=== PATIENT | female | born 1975 | race Caucasian/White ===

== ENCOUNTER → 2020-03-22 10:46 | Outpatient (CLI) | payer MEDICARE, MEDICAID, SELFPAY | PROVIDERS: PCP Obstetrics & Gynecology Gynecology; Visit Provider Obstetrics & Gynecology Gynecology | DX: Z20.822 Contact with and (suspected) exposure to COVID-19 (principal); Z01.818 Encounter for other preprocedural examination | CPT/HCPCS: U0003 ==

== ENCOUNTER → 2020-04-18 10:37 | Outpatient (CLI) | payer MEDICARE, MEDICAID, SELFPAY ==
[2020-04-19 16:01] LABS: C difficile Toxins AB, EIA Negative (Negative)
== END ==
PROVIDERS: Visit Provider Internal Medicine Hematology & Oncology
DX: R19.7 Diarrhea, unspecified (principal)
CPT/HCPCS: 87324

== ENCOUNTER 2021-06-24 19:52 | Inpatient (IN) | payer MEDICARE, MEDICAID, SELFPAY ==
[2021-06-24] VITALS (9 sets, daily range): BP systolic 95–109; BP diastolic 57–65; PULSE 44–67; RESP 18; TEMP 34.3–34.7; O2SAT 90–100; BMI 26.7
--- NOTE | 2021-06-24 20:06 | ECG_ITS ---
APPROVED REPORT Exam: Resting ECG HR:40 bpm ECG Measurements Heart Rate 40 AXES WV 167 P 46 QRSd 90 QRS 45 QT 579 T 45 QTc 512 Conclusion SINUS BRADYCARDIA PROLONGED QT INTERVAL CRITICAL TEST RESULT UNCONFIRMED REPORT Electronically signed by : Ari Saucedo MD 06/25/2021 17:37:38
--- NOTE | 2021-06-24 20:06 | XR_ITS ---
PROCEDURE INFORMATION: Exam: XR Chest Exam date and time: 06/24/2021 8:37 PM Age: 45 years old Clinical indication: Cough; Prior surgery; Surgery type: Port TECHNIQUE: Imaging protocol: XR of the chest. Views: 1 view. COMPARISON: No relevant prior studies available. FINDINGS: Lungs: No acute airspace consolidation. No appreciable pulmonary edema. Calcified pulmonary granuloma in the mid right lung, compatible with chronic sequelae of prior granulomatous disease. Pleural spaces: No pleural effusion. No pneumothorax. Heart/Mediastinum: Cardiomediastinal silouhette is within normal limits. Vasculature: Right IJ approach central venous port catheter in place with tip in the right atrium. Bones/joints: No acute osseous abnormality. Soft tissues: Unremarkable. IMPRESSION: No evidence of acute cardiopulmonary disease.
--- NOTE | 2021-06-24 20:14 | HMH.EDGENADL ---
ED Disposition Clinical Impression: Hypoglycemia, Hypokalemia Diabetes mellitus Qualifiers: Diabetes mellitus type: type 2 Diabetes mellitus intermediate insulin use: unspecified intermediate insulin use status Diabetes mellitus complication status: with other specified complication Qualified Code(s): E11.69 - Type 2 diabetes mellitus with other specified complication Hypothermia Qualifiers: Encounter type: initial encounter Qualified Code(s): T68.XXXA - Hypothermia, initial encounter Pancreatic cancer Qualifiers: Pancreatic malignancy location: unspecified Qualified Code(s): C25.9 - Malignant neoplasm of pancreas, unspecified Disposition: Admitted As Inpatient Condition on Discharge: Serious - Critical Care Critical Care Time: No Attestation: On 06/24/21, the high probability of a clinically significant, sudden or life threatening deterioration of the following system(s) required my full and direct attention, intervention and personal management. The time I documented below is in addition to time spent performing reported procedures but includes the following listed in this critical care notation. Medical Decision Making - Medical Records Medical records reviewed: Yes: I reviewed the patient's medical records. - Pérez Inquiry Pt receiving controlled substance: No Vital Signs: 06/24/21 19:51 06/24/21 20:06 06/24/21 20:30 Temperature 94.5 F L Temperature Source Rectal Pulse Rate 44 L 55 L Pulse Rate [Left Radial] 52 L Respiratory Rate 18 Blood Pressure Blood Pressure [Left Arm] 98/65 L Blood Pressure Mean Blood Pressure Mean [Left Arm] 76 02 Sat by Pulse Oximetry 100 98 98 Oxygen Delivery Method Room Air 06/24/21 21:00 06/24/21 21:30 06/24/21 22:00 Temperature Temperature Source Pulse Rate 51 L 67 65 Pulse Rate [Left Radial] Respiratory Rate Blood Pressure 95/61 L 97/57 L Blood Pressure [Left Arm] Blood Pressure Mean Blood Pressure Mean [Left Arm] 02 Sat by Pulse Oximetry 91 L 90 L 93 L Oxygen Delivery Method 06/24/21 22:30 06/24/21 23:00 06/24/21 23:30 Temperature 93.8 F L 93.8 F L Temperature Source Pulse Rate 62 57 L 62 Pulse Rate [Left Radial] Respiratory Rate Blood Pressure 109/59 L 108/64 L 105/60 L Blood Pressure [Left Arm] Blood Pressure Mean 75 78 85 Blood Pressure Mean [Left Arm] 02 Sat by Pulse Oximetry 98 97 Oxygen Delivery Method 06/25/21 00:00 06/25/21 00:01 06/25/21 00:30 Temperature 94.6 F L 94.6 F L Temperature Source Pulse Rate 73 70 73 Pulse Rate [Left Radial] Respiratory Rate 16 16 Blood Pressure 104/70 L 100/62 L 99/75 L Blood Pressure [Left Arm] Blood Pressure Mean 83 79 Blood Pressure Mean [Left Arm] 02 Sat by Pulse Oximetry 96 99 92 L Oxygen Delivery Method - Lab Data Lab results reviewed: Yes: I reviewed the patient's lab results. Lab Results 06/24/21 20:13: Urine Color Yellow, Urine Appearance Clear, Urine pH 7.5, Ur Specific [place] 1.010, Urine Protein Trace, Urine Glucose (UA) Negative, Urine Ketones Negative, Urine Blood Negative, Urine Nitrate Negative, Urine Bilirubin Negative, Urine Urobilinogen 0.2, Ur Leukocyte Esterase Negative, Urine RBC None, Urine WBC Occasional, Ur Squamous Epith Cells Occasional, Urine Bacteria None 06/24/21 20:24: WBC 13.3 H, RBC 4.63, Hgb 12.3, Hct 38.2, MCV 82.5, MCH 26.5 L, MCHC 32.2, RDW 17.0, Plt Count 540 H, MPV 7.5, Neut % (Auto) 89.7 H, Lymph % (Auto) 5.4 L, [place] % (Auto) 3.8, Eos % (Auto) 0.8, Baso % (Auto) 0.3, Neut # (Auto) 12.0 H, Lymph # (Auto) 0.7, [place] # (Auto) 0.5, Eos # (Auto) 0.1, Baso # (Auto) 0.0, Total Counted 100, Neutrophils % (Manual) 89 H, Lymphocytes % (Manual) 9 L, Monocytes % (Manual) 2, Platelet Estimate Normal, RBC Morphology Normal 06/24/21 20:24: Sodium 134 L, Potassium 2.1 L*, Chloride 93 L, Carbon Dioxide 40 H, Anion Gap 3.1 L, BUN 9, Creatinine 0.80, Estimated Creat Clear 99, Estimated GFR 78, Est GFR (Afric
[2021-06-24 20:19] LABS: Microscopic, Urine URINE MICROSCOPIC (MICROSCOPIC)
[2021-06-24 20:22] LABS: Appearance,Urine CLEAR (Clear); Bilirubin,Urine Negative (Negative); Blood, Urine Negative (Negative); Color,Urine YELLOW (Yellow); Glucose,Urine (UA) Negative (Negative); Ketones,Urine Negative (Negative); Leukocyte Esterase,Urine Negative (Negative); Nitrate,Urine Negative (Negative); PH,Urine 7.5 (5.0-8.5); Protein,Urine TRACE (Negative); Urobilinogen,Urine 0.2 EU/dl (0.2)
[2021-06-24 20:33] LABS: Squamous Epithelial Cell,Urine Occasional #/hpf (0-5); WBC,Urine Occasional #/hpf (0-3)
[2021-06-24 20:42] LABS: Basophils % 0.3 % (0.1-2.0); Eosinophils # 0.1 K/mm3 (0.0-0.4); Eosinophils % 0.8 % (0.1-12.0); Hematocrit 38.2 % (37.0-47.0); Hemoglobin 12.3 g/dL (12.2-16.2); Lymphocytes # 0.7 K/mm3 (0.7-4.5); Lymphocytes % 5.4 % (10-50); Mean Corpuscular HGB Conc 32.2 g/dL (31.8-35.4); Mean Corpuscular Hemoglobin 26.5 pg (27.0-31.2); Mean Corpuscular Volume 82.5 fl (81-99); Mean Platelet Volume 7.5 fl (7.4-10.4); Monocytes # 0.5 K/mm3 (0.1-1.0); Monocytes % 3.8 % (1.7-9.3); Neutrophils % 89.7 % (37.0-80.0); Platelet Count 540 K/mm3 (142-424); Red Blood Count 4.63 M/mm3 (4.20-5.40); White Blood Count 13.3 K/mm3 (4.8-10.8)
[2021-06-24 20:43] LABS: MANUAL DIFFERENTIAL MANUAL DIFFERENTIAL (MANUAL DIFF)
[2021-06-24 20:47] LABS: Creatine Kinase 84 U/L (30-135); Lactic Acid 0.9 mmol/L (0.7-2.1)
[2021-06-24 20:48] LABS: Alanine Aminotransferase 29 U/L (12-78); Albumin Level 2.5 g/dl (3.5-5.0); Albumin/Globulin Ratio 0.8 (1.1-1.8); Alkaline Phosphatase 687 U/L (38-126); Aspartate Amino Transferase 56 U/L (14-36); Bilirubin,Total 0.4 mg/dl (0.2-1.3); Blood Urea Nitrogen 9 mg/dl (7-17); Calcium 7.8 mg/dl (8.4-10.2); Chloride 93 mmol/L (98-107); Creatinine Clearance Estimated 99 mL/min (50-200); Estimated Glomerular Filt Rate 78 ml/min (>60); GFR (African American) 94 ML/MIN (>60); Glucose 117 mg/dl (74-100); Sodium 134 mmol/L (136-145); Total Protein,Serum 5.5 g/dl (6.3-8.2)
[2021-06-24 20:53] LABS: C-Reactive Protein 39.3 mg/L (0-4)
[2021-06-24 20:54] LABS: Anion Gap 3.1 mEq/L (5-15); Carbon Dioxide 40 mmol/L (22.0-30.0)
[2021-06-24 21:03] LABS: Troponin I < 0.01 ng/ml (0.00-0.034)
[2021-06-24 21:04] LABS: Procalcitonin 0.079 ng/mL (0.0-2.0)
[2021-06-24 21:08] LABS: Potassium 2.1 mmoL/L (3.5-5.1)
[2021-06-24 21:12] LABS: POC Glucose,Bedside 136 (70-110)
[2021-06-24 21:15] LABS: Erythrocyte Sedimentation Rate 31 mm/hr (0-20)
[2021-06-24 21:48] LABS: Lymphocytes % 9 % (10-50); Monocytes % 2 % (2-9); Neutrophils % 89 % (42-76); Platelet Estimate Normal; RBC Morphology Normal; Total Cells Counted 100
--- NOTE | 2021-06-24 23:10 | PC.NURSE ---
Pt resting. Visitor at bedside.
[2021-06-24 23:25] LABS: Coronavirus 19, PCR Not Detected (NotDetected); Influenza A, PCR Not Detected (NotDetected); Influenza B, PCR Not Detected (NotDetected)
[2021-06-24 23:55] LABS: Troponin I < 0.01 ng/ml (0.00-0.034)
[2021-06-25] VITALS (8 sets, daily range): BP systolic 91–104; BP diastolic 53–75; PULSE 70–85; RESP 14–18; TEMP 34.8–37.1; O2SAT 92–99; BMI 27.5
[2021-06-25 00:26] LABS: POC Glucose,Bedside 61 (70-110)
--- NOTE | 2021-06-25 00:32 | PC.NURSE ---
Notified bunk house worker of pt admission and need for bed assignment
--- NOTE | 2021-06-25 01:04 | XR_ITS ---
PROCEDURE INFORMATION: Exam: XR Pelvis Exam date and time: 06/25/2021 1:14 AM Age: 45 years old Clinical indication: Injury or trauma; Fall; Blunt trauma (contusions or hematomas); Does not apply; Pelvic region; Prior surgery TECHNIQUE: Imaging protocol: XR pelvis. Views: 1 or 2 view. COMPARISON: No relevant prior studies available. FINDINGS: Tubes, catheters and devices: Post-operative changes of prior right femur fixation with intramedullary femoral angelique and cannulated cross-locking trochanteric nail. Hardware is intact. No perihardware fracture or lucency to suggest loosening. Sawyer catheter in place. Bones/joints: No acute fracture or malalignment. Pubic symphysis and bilateral sacroiliac joints are congruent. Soft tissues: Unremarkable. IMPRESSION: 1. No acute osseous abnormality in the pelvis. 2. Prior right proximal femur fixation with no evidence of hardware malfunction/failure.
[2021-06-25 03:00] LABS: POC Glucose,Bedside 89 (70-110)
--- NOTE | 2021-06-25 03:08 | PC.NURSE ---
patient up to floor via stretcher @ this time.
[2021-06-25 06:27] LABS: Basophils % 0.3 % (0.1-2.0); Eosinophils # 0.1 K/mm3 (0.0-0.4); Eosinophils % 1.6 % (0.1-12.0); Hematocrit 35.3 % (37.0-47.0); Hemoglobin 11.7 g/dL (12.2-16.2); Lymphocytes # 0.7 K/mm3 (0.7-4.5); Lymphocytes % 8.9 % (10-50); Mean Corpuscular HGB Conc 33.1 g/dL (31.8-35.4); Mean Corpuscular Volume 81.7 fl (81-99); Mean Platelet Volume 7.7 fl (7.4-10.4); Monocytes # 0.5 K/mm3 (0.1-1.0); Monocytes % 6.6 % (1.7-9.3); Neutrophils # 6.2 K/mm3 (1.8-7.8); Neutrophils % 82.5 % (37.0-80.0); Platelet Count 488 K/mm3 (142-424); Red Blood Count 4.32 M/mm3 (4.20-5.40); Red Cell Distribution Width 16.9 % (11.5-17.5); White Blood Count 7.5 K/mm3 (4.8-10.8)
[2021-06-25 06:31] LABS: Blood Urea Nitrogen 8 mg/dl (7-17); Calcium 7.6 mg/dl (8.4-10.2); Chloride 95 mmol/L (98-107); Creatinine Clearance Estimated 117 mL/min (50-200); Estimated Glomerular Filt Rate 90 ml/min (>60); GFR (African American) 109 ML/MIN (>60); Glucose 106 mg/dl (74-100); Magnesium 1.6 mg/dl (1.6-2.3); Sodium 136 mmol/L (136-145)
[2021-06-25 06:38] LABS: Anion Gap 4.9 mEq/L (5-15); Carbon Dioxide 38 mmol/L (22.0-30.0)
[2021-06-25 06:41] LABS: Potassium 1.9 mmoL/L (3.5-5.1)
--- NOTE | 2021-06-25 06:47 | PC.NURSE ---
critical K+1.[address] Sanders. Instructed to give 20 mg PO now.
[2021-06-25 06:48] LABS: T4 (Thyroxine) 6.6 ug/dl (5.53-11.0)
--- NOTE | 2021-06-25 10:12 | HMH.PHAVTE ---
[facility] Pharmacy VTE Monitoring - Patient Demographics Admission date: 06/25/21 Report Date: 06/25/21 Time: 10:12 Allergies/Adverse Reactions: Patient Allergies Bacitracin Allergy (Intermediate, Uncoded 02/02/17 15:05) I-RASH Polymyxin B Allergy (Intermediate, Uncoded 02/02/17 15:05) I-RASH PCN (penicillin) Allergy (Unknown, Uncoded 02/02/17 15:05) Penicillin Allergy (Unknown, Uncoded 02/02/17 15:05) Penicillin V Allergy (Unknown, Uncoded 02/02/17 15:05) Height: 1.63 m Weight: 73.198 kg Patient Problems: Current Active Problems Diabetes mellitus (Acute) Hypoglycemia (Acute) Hypothermia (Acute) Pancreatic cancer (Acute) Hypokalemia (Acute) - VTE Risk Labs: VTE Related Lab Results Hgb 11.7 g/dL (12.2-16.2) L 06/25/21 05:24 Hct 35.3 % (37.0-47.0) L 06/25/21 05:24 Plt Count 488 K/mm3 (142-424) H 06/25/21 05:24 BUN 8 mg/dl (7-17) 06/25/21 05:24 Creatinine 0.70 mg/dl (0.52-1.04) 06/25/21 05:24 Estimated Creat Clear 117 mL/min (50-200) 06/25/21 05:24 Was VTE Risk Assessment Performed: Yes VTE Score: 3 VTE Risk Level: Low Risk Clinical Trial Participant: No - Prophylaxis VTE Prophylaxis Ordered?: Yes Types of VTE Prophylaxis: TEDS Knee High Location of Applied Device: Bilateral Lower Extremeties
[2021-06-25 11:46] LABS: POC Glucose,Bedside 127 (70-110)
--- NOTE | 2021-06-25 12:09 | PC.NURSE ---
Lab came to draw 1200 bmp but patient refused at this time and wanted to wait a half an hour
[2021-06-25 12:35] LABS: POC Glucose,Bedside 122 (70-110)
[2021-06-25 12:35] LABS: POC Glucose,Bedside 125 (70-110)
[2021-06-25 13:50] LABS: Anion Gap 1.9 mEq/L (5-15); Blood Urea Nitrogen 6 mg/dl (7-17); Calcium 7.9 mg/dl (8.4-10.2); Carbon Dioxide 38 mmol/L (22.0-30.0); Chloride 98 mmol/L (98-107); Creatinine Clearance Estimated 117 mL/min (50-200); Estimated Glomerular Filt Rate 90 ml/min (>60); GFR (African American) 109 ML/MIN (>60); Glucose 129 mg/dl (74-100); Sodium 135 mmol/L (136-145)
[2021-06-25 13:51] LABS: Potassium 2.9 mmoL/L (3.5-5.1)
--- NOTE | 2021-06-25 13:55 | PC.NURSE ---
Austin Beltran APRN notified of critical K+ of 2.9
--- NOTE | 2021-06-25 16:21 | HMH.HPDC ---
General - General Admission date:: 06/25/21 Discharge date: 06/25/21 *Admission Date: 06/25/21 *Chief complaint: hypothermia *History of present illness: 45 yr old female presented to ed via ambulance. Pt returned home and found pt on the floor at 1900, Per ems record glucose was 22. ems admiinistered Glucagon and glucose up to 64 when arrived at ed. hx of diabetes and pancreatic cancer - no fever or trauma. Pt was also hypothermic when arrived to ed. Pt was admitted for monitoring and increase of body temp. today pt states she feels much better and wants to go home [facility] History I have reviewed the patient's past medical history: Yes Medical History: Reports:: Cancer, Diabetes Mellitus Type 2 Denies:: Diabetes Mellitus Type 1 *Have you ever received a pneumonia vaccine?: No *Have you received a flu vaccine this season?: No Other Medical History: Reports: Arthritis, Chemotherapy Other Surgeries: Yes: Tubal Ligation, Other (liver stent) - *Social History Last grade of school completed: Advanced degree Smoking Status: Current every day smoker Tobacco Type: cigarettes # Packs/Day (cigarettes): 1 Alcohol Intake: never Substance Use Type: marijuana Last Used Substance: just [employer] *Occupational Status:: disabled Housing: house Household Members: significant other *Travel in the last 8 weeks: None Family Hx:: Cancer, Diabetes, Hypertension Review of Systems - Review of Systems Review of systems:: pertinent systems reviewed and negative unless documented below - Constitutional Denies daytime sleepiness - Eyes Denies blurry vision - ENT Denies bleeding gums - *Cardiovascular Denies chest pain at rest - *Respiratory Denies chest congestion - *Gastrointestinal Denies bloating - *Genitourinary Denies abnormal vaginal bleeding - *Musculoskeletal Denies decreased muscle mass - Integumentary/Breasts Denies rash - *Neurologic Reports weakness, Denies abnormal movements, Denies localized weakness, Denies seizure-like activity - Psychiatric Denies anxiety - Endocrine Denies excessive sweating - Hematologic/Lymphatic Denies easy bruising - Allergic/Immunologic Denies itchy eyes Exam Vital signs and Labs for Last 24 Hours: Temp Pulse Resp BP Pulse Ox 98.7 F 84 16 91/57 L 98 06/25/21 15:09 06/25/21 15:09 06/25/21 15:06/25/21 15:06/25/21 15:09 Laboratory Results - last 24 hr 06/24/21 20:13: Urine Color Yellow, Urine Appearance Clear, Urine pH 7.5, Ur Specific [place] 1.010, Urine Protein Trace, Urine Glucose (UA) Negative, Urine Ketones Negative, Urine Blood Negative, Urine Nitrate Negative, Urine Bilirubin Negative, Urine Urobilinogen 0.2, Ur Leukocyte Esterase Negative, Urine RBC None, Urine WBC Occasional, Ur Squamous Epith Cells Occasional, Urine Bacteria None 06/24/21 20:24: WBC 13.3 H, RBC 4.63, Hgb 12.3, Hct 38.2, MCV 82.5, MCH 26.5 L, MCHC 32.2, RDW 17.0, Plt Count 540 H, MPV 7.5, Neut % (Auto) 89.7 H, Lymph % (Auto) 5.4 L, [place] % (Auto) 3.8, Eos % (Auto) 0.8, Baso % (Auto) 0.3, Neut # (Auto) 12.0 H, Lymph # (Auto) 0.7, [place] # (Auto) 0.5, Eos # (Auto) 0.1, Baso # (Auto) 0.0, Total Counted 100, Neutrophils % (Manual) 89 H, Lymphocytes % (Manual) 9 L, Monocytes % (Manual) 2, Platelet Estimate Normal, RBC Morphology Normal 06/24/21 20:24: Sodium 134 L, Potassium 2.1 L*, Chloride 93 L, Carbon Dioxide 40 H, Anion Gap 3.1 L, BUN 9, Creatinine 0.80, Estimated Creat Clear 99, Estimated GFR 78, Est GFR ( Amer) 94, Glucose 117 H, Calcium 7.8 L, Total Bilirubin 0.4, AST 56 H, ALT 29, Alkaline Phosphatase 687 H, C-Reactive Protein 39.3 H, Total Protein 5.5 L, Albumin 2.5 L, Globulin 3.0, Albumin/Globulin Ratio 0.8 L 06/24/21 20:24: ESR 31 H 06/24/21 20:24: Total Creatine Kinase 84, Troponin I < 0.01, Procalcitonin 0.079 06/24/21 20:24: Lactate 0.9 06/24/21 21:06: POC Glucose 136 H 06/24/21 23:20: Troponin I < 0.01 06/24/21 23:20: SARS-CoV-2 (PCR) Not detected, Influenza A Untype (
[2021-06-25 16:53] LABS: POC Glucose,Bedside 110 (70-110)
--- NOTE | 2021-06-26 14:05 | CARE MANAGER ---
Addendum entered by Laura Naranjo RN 06/26/21 14:31: Patient has appointment with PCP next . SUSANA Lincoln suggests patient stop taking Lantus until her appointment. Discussed with patient if blood sugar stays too low to reach out to her PCP to see what steps to take next. We also discussed if the blood sugar starts increasing she will need to consult MD as Lantus will need to be added back but perhaps not at the same amount she was on. Patient verbalized understanding. Original Note: Spoke with patient related to discharge from hospital. Patient states that her blood sugar was 39 earlier. She has eaten candy and drank juice, but it keeps going back down. Discussed with her the importance of eating something with protein to help sustain her blood sugar. That the sweets will get it up immediately but the protein will help in the long run. She verbalizes understanding. Patient also states she takes Lantus, Humalog, and Metformin. Patient states she has a regular doctor but a doctor at with a long last name handles her diabetic medications. I strongly encouraged patient to reach out to whomever she could get in touch with first and discuss her hypoglycemic episodes and what she should do regarding those medications. She assured me she would.
== END 2021-06-25 18:02 | disposition home or self-care (01) | DRG 638 ==
LOC: ER 20:07 → 2ND 06-25 00:42
PROVIDERS: Nurse Practitioner Family; Admitting Provider Emergency Medicine; Emergency Provider Emergency Medicine; Visit Provider Emergency Medicine
DX: E11.649 Type 2 diabetes mellitus with hypoglycemia without coma (principal); C25.9 Malignant neoplasm of pancreas, unspecified; R68.0 Hypothermia, not associated with low environmental temperature; E87.6 Hypokalemia; F17.210 Nicotine dependence, cigarettes, uncomplicated; Z20.822 Contact with and (suspected) exposure to COVID-19
CPT/HCPCS: 51702; 71045; 72170; 80048; 80053; 81001; 82550; 82962; 83605; 83735; 84145; 84436; 84443; 84484; 85007; 85025; 85651; 86140; 87040; 87086; 93005; 99285; C9803; J1642; J2405; U0003; U0005

== ENCOUNTER 2021-08-29 19:09 | Inpatient (IN) | payer MEDICARE, MEDICAID, SELFPAY ==
[2021-08-29] VITALS (10 sets, daily range): BP systolic 76–144; BP diastolic 55–94; PULSE 49–83; RESP 11–19; TEMP 33.8; O2SAT 92–98; BMI 28.1
--- NOTE | 2021-08-29 19:10 | HMH.EDAMS ---
ED Disposition Condition on Discharge: Fair - Critical Care Critical Care Time: No <Khanh Johnson - Last Filed: 08/29/21 19:50> Condition on Discharge: Serious Total Critical Care Time: 60 Vital system(s) involved:: Circulatory Failure, Metabolic Failure, Respiratory Failure <Ramo Sanders - Last Filed: 08/30/21 04:08> Clinical Impression: Insulin coma, Sinus bradycardia by electrocardiogram, SAH (subarachnoid hemorrhage), Hypokalemia Hypothermia Qualifiers: Encounter type: initial encounter Qualified Code(s): T68.XXXA - Hypothermia, initial encounter Diabetes mellitus Qualifiers: Diabetes mellitus type: type 2 Diabetes mellitus fci insulin use: unspecified fci insulin use status Diabetes mellitus complication status: with other specified complication Qualified Code(s): E11.69 - Type 2 diabetes mellitus with other specified complication Disposition: Admitted As Inpatient Attestation: On 08/29/21, the high probability of a clinically significant, sudden or life threatening deterioration of the following system(s) required my full and direct attention, intervention and personal management. The time I documented below is in addition to time spent performing reported procedures but includes the following listed in this critical care notation. Medical Decision Making - Pérez Inquiry Pt receiving controlled substance: No - ECG Data Tracing #1 I reviewed this ECG and interpreted as documented below: Normal Sinus Rhythm: Yes Arrhythmias present: sinus murphy - Reevaluation(s) Time: 19:46 <Khanh Johnson - Last Filed: 08/29/21 19:50> - Medical Records Medical records reviewed: Yes: I reviewed the patient's medical records. - Lab Data Lab results reviewed: Yes: I reviewed the patient's lab results. Result diagrams: 08/29/21 19:41 08/29/21 19:41 - Radiology Data #1 Image(s): Chest, Pelvis Image Reviewed: Yes I have reviewed radiologist's interpretation Preliminary Findings: Abnormal (see report ) - CT Data CT Scan: Head, C-Spine Time Received: 04:[address] Reviewed: Yes: I have viewed the radiologist's interpretation Preliminary Findings: Abnormal (see report x 2 ) <Ramo Sanders S - Last Filed: 08/30/21 04:08> Vital Signs: 08/29/21 19:10 08/29/21 20:31 08/29/21 21:00 Temperature 92.9 F L Temperature Source Rectal Pulse Rate 66 69 Pulse Rate [Left Radial] 49 L Respiratory Rate 12 16 15 Blood Pressure 95/69 L 88/62 L Blood Pressure [Right Arm] 144/94 H Blood Pressure Mean 67 Blood Pressure Mean [Right Arm] 110 Blood Pressure Source [Right Arm] Automatic Cuff Blood Pressure Position [Right Arm] Sitting 02 Sat by Pulse Oximetry 97 94 L 97 Oxygen Delivery Method Room Air Room Air 08/29/21 21:02 08/29/21 21:04 08/29/21 21:10 Temperature Temperature Source Pulse Rate 77 74 78 Pulse Rate [Left Radial] Respiratory Rate 13 11 L 16 Blood Pressure 80/57 L 76/55 L 86/61 L Blood Pressure [Right Arm] Blood Pressure Mean 61 59 67 Blood Pressure Mean [Right Arm] Blood Pressure Source [Right Arm] Blood Pressure Position [Right Arm] 02 Sat by Pulse Oximetry 98 97 97 Oxygen Delivery Method 08/29/21 22:00 08/29/21 22:30 08/29/21 23:00 Temperature Temperature Source Pulse Rate 75 51 L 83 Pulse Rate [Left Radial] Respiratory Rate 19 15 17 Blood Pressure 87/63 L 83/59 L 82/56 L Blood Pressure [Right Arm] Blood Pressure Mean Blood Pressure Mean [Right Arm] Blood Pressure Source [Right Arm] Blood Pressure Position [Right Arm] 02 Sat by Pulse Oximetry 96 96 95 Oxygen Delivery Method Room Air Room Air Room Air 08/29/21 23:30 08/30/21 00:26 08/30/21 00:30 Temperature 94 F L Temperature Source Rectal Pulse Rate 68 77 68 Pulse Rate [Left Radial] Respiratory Rate 15 13 14 Blood Pressure 80/55 L 82/47 L 82/54 L Blood Pressure [Right Arm] Blood Pressure Mean 57 60 Blood Pressure Mean [Rig
--- NOTE | 2021-08-29 19:15 | PC.NURSE ---
Rectal temp obtained and is 92.8. Pt moved to room 4 to be placed on bear-hugger. Wet clothes removed, gown placed, and warm blankets placed around head and over bear-hugger. Warm fluids ordered and are infusing to R hand PIV.
--- NOTE | 2021-08-29 19:23 | ECG_ITS ---
APPROVED REPORT Exam: Resting ECG HR:32 bpm ECG Measurements Heart Rate 32 AXES QRSd 98 QRS 36 QT 546 T 49 QTc 428 Conclusion SINUS BRADYCARDIA WITH 2ND DEGREE AV BLOCK, 2:1 OR MOBITZ TYPE II NONSPECIFIC T-WAVE ABNORMALITY CRITICAL TEST RESULT UNCONFIRMED REPORT Electronically signed by : Ari Saucedo MD 08/31/2021 16:27:05
[2021-08-29 19:53] LABS: Basophils # 0.1 K/mm3 (0-0.2); Basophils % 0.9 % (0.1-2.0); Eosinophils # 0.3 K/mm3 (0.0-0.4); Eosinophils % 3.7 % (0.1-12.0); Hemoglobin 12.7 g/dL (12.2-16.2); Lymphocytes # 0.9 K/mm3 (0.7-4.5); Lymphocytes % 10.6 % (10-50); Mean Corpuscular HGB Conc 32.6 g/dL (31.8-35.4); Mean Corpuscular Hemoglobin 28.2 pg (27.0-31.2); Mean Corpuscular Volume 86.7 fl (81-99); Mean Platelet Volume 8.5 fl (7.4-10.4); Monocytes # 0.4 K/mm3 (0.1-1.0); Neutrophils % 80.8 % (37.0-80.0); Platelet Count 355 K/mm3 (142-424); Red Blood Count 4.51 M/mm3 (4.20-5.40); Red Cell Distribution Width 15.5 % (11.5-17.5); White Blood Count 8.7 K/mm3 (4.8-10.8)
[2021-08-29 20:01] LABS: Alanine Aminotransferase 30 U/L (12-78); Albumin Level 2.4 g/dl (3.5-5.0); Albumin/Globulin Ratio 0.8 (1.1-1.8); Alkaline Phosphatase 1019 U/L (38-126); Anion Gap 1.2 mEq/L (5-15); Aspartate Amino Transferase 90 U/L (14-36); Bilirubin,Total 0.3 mg/dl (0.2-1.3); Blood Urea Nitrogen 14 mg/dl (7-17); Calcium 7.8 mg/dl (8.4-10.2); Carbon Dioxide 39 mmol/L (22.0-30.0); Chloride 94 mmol/L (98-107); Creatinine Clearance Estimated 71 mL/min (50-200); Estimated Glomerular Filt Rate 54 ml/min (>60); GFR (African American) 65 ML/MIN (>60); Glucose 192 mg/dl (74-100); Lactic Acid 1.2 mmol/L (0.7-2.1); Sodium 132 mmol/L (136-145); Total Protein,Serum 5.4 g/dl (6.3-8.2)
[2021-08-29 20:05] LABS: Creatine Kinase 244 U/L (30-135)
[2021-08-29 20:06] LABS: Potassium 2.2 mmoL/L (3.5-5.1)
[2021-08-29 20:10] LABS: Microscopic, Urine URINE MICROSCOPIC (MICROSCOPIC)
[2021-08-29 20:14] LABS: Appearance,Urine CLEAR (Clear); Blood, Urine Negative (Negative); Color,Urine YELLOW (Yellow); Glucose,Urine (UA) 3+ (Negative); Ketones,Urine Negative (Negative); Leukocyte Esterase,Urine Negative (Negative); Nitrate,Urine Negative (Negative); Protein,Urine 2+ (Negative); Specific Gravity, Urine 1.015 (1.005-1.030); Urobilinogen,Urine 0.2 EU/dl (0.2)
[2021-08-29 20:18] LABS: Coronavirus 19, PCR Not Detected (NotDetected); Influenza A, PCR Not Detected (NotDetected); Influenza B, PCR Not Detected (NotDetected)
[2021-08-29 20:20] LABS: Troponin I < 0.01 ng/ml (0.00-0.034)
--- NOTE | 2021-08-29 20:22 | PC.NURSE ---
Family at BS
[2021-08-29 20:31] LABS: Bilirubin,Urine 1+ (Negative)
[2021-08-29 20:32] LABS: RBC,Urine Occasional #/hpf (0-3); Squamous Epithelial Cell,Urine Occasional #/hpf (0-5); WBC,Urine Occasional #/hpf (0-3)
--- NOTE | 2021-08-29 21:09 | PC.NURSE ---
Manual BP obtained 78/58
--- NOTE | 2021-08-29 21:13 | CT_ITS ---
PROCEDURE INFORMATION: Exam: CT Head Without Contrast Exam date and time: 08/29/2021 9:27 PM Age: 45 years old Clinical indication: Injury or trauma; Fall; Blunt trauma (contusions or hematomas); Consciousness not specified; Additional info: Found in floor unresponsive TECHNIQUE: Imaging protocol: Computed tomography of the head without contrast. Radiation optimization: All CT scans at this facility use at least one of these dose optimization techniques: automated exposure control; mA and/or kV adjustment per patient size (includes targeted exams where dose is matched to clinical indication); or iterative reconstruction. COMPARISON: No relevant prior studies available. FINDINGS: Brain: There is a small amount of subarachnoid hemorrhage overlying left temporoparietal convexity. No associated mass effect. Mild chronic brain volume loss and chronic small vessel ischemic changes. Cerebral ventricles: No ventriculomegaly. Paranasal sinuses: Visualized sinuses are unremarkable. No fluid levels. Mastoid air cells: Visualized mastoid air cells are well aerated. Bones/joints: Unremarkable. No acute fracture. Soft tissues: Unremarkable. IMPRESSION: 1. There is a small amount of subarachnoid hemorrhage overlying left temporoparietal convexity. No associated mass effect. 2. THIS REPORT CONTAINS FINDINGS THAT MAY BE CRITICAL TO PATIENT CARE. The findings were verbally communicated via telephone conference with RICK MORA at 10:03 PM EDT on 08/29/2021. The findings were acknowledged and understood.
--- NOTE | 2021-08-29 21:14 | XR_ITS ---
PROCEDURE INFORMATION: Exam: XR Pelvis Exam date and time: 08/29/2021 9:49 PM Age: 45 years old Clinical indication: Injury or trauma; Fall; Sprain or strain; Bilateral; Pelvic region; Prior surgery; Surgery date: 6+ months; Surgery type: RT hip; Additional info: Found unresponsive on floor TECHNIQUE: Imaging protocol: Radiologic exam of the pelvis. Views: 1 or 2 view. COMPARISON: No relevant prior studies available. FINDINGS: Tubes, catheters and devices: Tubal ligation clips in the pelvis are noted. Bones/joints: Postsurgical changes of the right femur. The hardware appears intact. No acute fracture or dislocation. [id number] osteoarthrosis of the right hip. Soft tissues: Unremarkable. IMPRESSION: No acute fracture or dislocation.
--- NOTE | 2021-08-29 21:19 | PC.NURSE ---
FAMILY AT BEDSIDE. PT AND FAMILY AWARE TO NOT TAKE ANY HOME MEDICATIONS. WCM.
--- NOTE | 2021-08-29 21:19 | PC.NURSE ---
WARMING BLANKET REMAINS IN PLACE. PT ABLE TO EAT AND DRINK WITHOUT DIFFICULTY AND REMAINS ALERT AND ORIENTED.
--- NOTE | 2021-08-29 21:25 | XR_ITS ---
PROCEDURE INFORMATION: Exam: XR Chest Exam date and time: 08/29/2021 9:47 PM Age: 45 years old Clinical indication: Injury or trauma; Fall; Blunt trauma (contusions or hematomas); Prior surgery; Surgery date: 6+ months; Surgery type: Port for chemo; Patient HX: HX pancreas cancer TECHNIQUE: Imaging protocol: Radiologic exam of the chest. Views: 1 view. COMPARISON: CT CERVICAL SPINE WO CON 08/29/2021 9:30 PM FINDINGS: Tubes, catheters and devices: Biliary stents are partially imaged. Right port tip projects over the right atrium. Lungs: Stigmata of old granulomatous disease. Pleural spaces: Unremarkable. No pleural effusion. No pneumothorax. Heart/Mediastinum: Unremarkable. No cardiomegaly. Bones/joints: Unremarkable. Organs: Cholecystectomy clips. IMPRESSION: No acute intrathoracic organ injury.
--- NOTE | 2021-08-29 21:25 | CT_ITS ---
PROCEDURE INFORMATION: Exam: CT Cervical Spine Without Contrast Exam date and time: 08/29/2021 9:30 PM Age: 45 years old Clinical indication: Injury or trauma; Fall; Blunt trauma TECHNIQUE: Imaging protocol: Computed tomography of the cervical spine without contrast. Radiation optimization: All CT scans at this facility use at least one of these dose optimization techniques: automated exposure control; mA and/or kV adjustment per patient size (includes targeted exams where dose is matched to clinical indication); or iterative reconstruction. COMPARISON: CT HEAD/BRAIN WO CON 08/29/2021 9:27 PM FINDINGS: Bones/joints: Straightening of the curvature of the cervical spine is likely positional. Discs/Spinal canal/Neural foramina: No significant disc protrusion. No severe spinal canal stenosis. No significant neural foraminal narrowing. Lungs: Lung apices are normal. Soft tissues: Unremarkable. IMPRESSION: No acute fracture or malalignment of the cervical spine.
[2021-08-29 21:30] LABS: Hemoglobin A1C 6.9 % (4.0-6.0)
[2021-08-29 21:32] LABS: NT Pro Brain Natriuretic Pep. 1230 pg/mL (0-125)
[2021-08-29 21:38] LABS: Amylase 41 U/L (30-110)
[2021-08-29 21:40] LABS: Lipase < 10 U/L (23-300)
[2021-08-29 22:35] LABS: POC Glucose,Bedside 306 (70-110)
[2021-08-29 22:35] LABS: POC Glucose,Bedside 227 (70-110)
[2021-08-29 23:43] LABS: Troponin I < 0.01 ng/ml (0.00-0.034)
[2021-08-29 23:49] LABS: POC Glucose,Bedside 366 (70-110)
[2021-08-30] VITALS (17 sets, daily range): BP systolic 74–98; BP diastolic 33–60; PULSE 49–85; RESP 12–17; TEMP 34.4–36.9; O2SAT 93–99; BMI 27.3
--- NOTE | 2021-08-30 00:35 | CT_ITS ---
PROCEDURE INFORMATION: Exam: CT Head Without Contrast Exam date and time: 08/30/2021 12:47 AM Age: 45 years old Clinical indication: Other: Repeat CT due to abnormal CT head earlier this pm; Additional info: Repeat CT d/t abd CT prev TECHNIQUE: Imaging protocol: Computed tomography of the head without contrast. Radiation optimization: All CT scans at this facility use at least one of these dose optimization techniques: automated exposure control; mA and/or kV adjustment per patient size (includes targeted exams where dose is matched to clinical indication); or iterative reconstruction. COMPARISON: CT HEAD/BRAIN WO CON 08/29/2021 9:27 PM FINDINGS: Brain: No significant interval change in left-sided subarachnoid hemorrhage overlying the temporoparietal convexity. No associated mass effect. Mild chronic brain volume loss and chronic small vessel ischemic changes. Cerebral ventricles: No ventriculomegaly. Paranasal sinuses: Visualized sinuses are unremarkable. No fluid levels. Mastoid air cells: Visualized mastoid air cells are well aerated. Bones/joints: Unremarkable. No acute fracture. Soft tissues: Unremarkable. IMPRESSION: No significant interval change.
--- NOTE | 2021-08-30 00:49 | PC.NURSE ---
Pt gone to RAD for repeat CT
--- NOTE | 2021-08-30 00:56 | PC.NURSE ---
Pt back from RAD
--- NOTE | 2021-08-30 01:40 | PC.NURSE ---
GCS REMAINS WNL. NO ACUTE DISTRESS NOTED. PT AWARE OF PLAN TO ADMIT. WCM.
--- NOTE | 2021-08-30 01:59 | PC.NURSE ---
LABS DRAWN. PT TOLERATED WELL. PT AWARE OF PLAN TO ADMIT AND CURRENTLY WAITING ON BED ASSIGNMENT. WCM.
[2021-08-30 02:42] LABS: Troponin I < 0.01 ng/ml (0.00-0.034)
--- NOTE | 2021-08-30 04:27 | PC.NURSE ---
PT AWARE OF TRANSFER TO FLOOR. NO COMPLAINTS VOICED. NO ACUTE DISTRESS NOTED. BELONGINGS SENT WITH PATIENT.
--- NOTE | 2021-08-30 04:33 | PC.NURSE ---
PT ARRIVED TO FLOOR VIA STRETCHER W/STAFF @ [id number]
--- NOTE | 2021-08-30 07:40 | PC.NURSE ---
Pt arrived to floor 0430, pt was in bearhugger due to a temperature of 94.0. Pt remained on bear hugger until temperature improved to 95.7 and has maintained that temperature. Pt is ra o2 SAT >95%. Pt glucose 220, treated per mar. Pt has had no new complaints. Pt has rested well since being on the floor. Alert and oriented x4.
[2021-08-30 07:54] LABS: Basophils % 0.4 % (0.1-2.0); Eosinophils # 0.2 K/mm3 (0.0-0.4); Eosinophils % 2.8 % (0.1-12.0); Hematocrit 37.5 % (37.0-47.0); Hemoglobin 11.7 g/dL (12.2-16.2); Lymphocytes # 0.6 K/mm3 (0.7-4.5); Lymphocytes % 10.6 % (10-50); Mean Corpuscular HGB Conc 31.2 g/dL (31.8-35.4); Mean Corpuscular Hemoglobin 27.9 pg (27.0-31.2); Mean Corpuscular Volume 89.6 fl (81-99); Mean Platelet Volume 8.8 fl (7.4-10.4); Monocytes # 0.3 K/mm3 (0.1-1.0); Monocytes % 5.7 % (1.7-9.3); Neutrophils # 4.8 K/mm3 (1.8-7.8); Neutrophils % 80.6 % (37.0-80.0); Platelet Count 308 K/mm3 (142-424); Red Blood Count 4.18 M/mm3 (4.20-5.40); Red Cell Distribution Width 15.4 % (11.5-17.5)
--- NOTE | 2021-08-30 08:00 | CT_ITS ---
PROCEDURE INFORMATION: Exam: CT Head Without Contrast Exam date and time: 08/30/2021 8:40 AM Age: 45 years old Clinical indication: Weakness, extremity; Bilateral; Additional info: Weakness/gait abn/abn CT TECHNIQUE: Imaging protocol: Computed tomography of the head without contrast. Radiation optimization: All CT scans at this facility use at least one of these dose optimization techniques: automated exposure control; mA and/or kV adjustment per patient size (includes targeted exams where dose is matched to clinical indication); or iterative reconstruction. COMPARISON: CT HEAD/BRAIN WO CON 08/30/2021 12:47 AM FINDINGS: Brain: Prominent sulci. Patchy hypodensity of the cerebral white matter which are nonspecific but likely secondary to microangiopathic changes. The small amount of left temporoparietal subarachnoid hemorrhage appears slightly more faint than on previous exam. Cerebral ventricles: The ventricles are prominent secondary to diffuse volume loss/atrophy. Paranasal sinuses: Visualized sinuses are unremarkable. No fluid levels. Mastoid air cells: Visualized mastoid air cells are well aerated. Bones/joints: Unremarkable. No acute fracture. Soft tissues: Unremarkable. IMPRESSION: The small amount of left temporoparietal subarachnoid hemorrhage appears slightly more faint than on previous exam. Remainder of findings as described above.
[2021-08-30 08:04] LABS: Anion Gap 1.8 mEq/L (5-15); Blood Urea Nitrogen 12 mg/dl (7-17); Calcium 7.4 mg/dl (8.4-10.2); Carbon Dioxide 35 mmol/L (22.0-30.0); Chloride 100 mmol/L (98-107); Creatinine Clearance Estimated 94 mL/min (50-200); Estimated Glomerular Filt Rate 78 ml/min (>60); GFR (African American) 94 ML/MIN (>60); Glucose 184 mg/dl (74-100); Magnesium 1.8 mg/dl (1.6-2.3); Sodium 134 mmol/L (136-145)
[2021-08-30 08:11] LABS: Potassium 2.8 mmoL/L (3.5-5.1)
--- NOTE | 2021-08-30 08:13 | PC.NURSE ---
CRITICAL LAB VALUE REPORTED FROM LAB POTASSIUM 2.8 NAME AND VERIFIED. MD MAE MADE AWARE.
--- NOTE | 2021-08-30 10:31 | HMH.HP ---
*Admission Date: 08/30/21 *Chief complaint: Diabetic coma, neuroendocrine tumor *History of present illness: This 45-year-old white female was brought to the emergency room because of change in responsiveness. She was found to be hypoglycemic. She has a history of a neuroendocrine tumor with onset of diabetes subsequent to that. She has been diabetic over the past 2 years. She has been followed at the [facility] but she is also been hospitalized here at [facility]. Her oncologist is Dr. Nunez. She states that she takes daily chemotherapy. She is seen at every 3 months. The diagnosis was made in 2013. Another factor in her admission was a bradycardia of a rate below 40. She normally takes propranolol. This, of course, has not been continued on hospitalization. A CT of the head was obtained in the emergency room and there was evidence of a small subarachnoid hemorrhage. With a repeat CT hours later it seemed to be stable and not progressive. She has a strong family history for cancers. 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 Mother with melanoma. Brother and a sister. She has 2 daughters 21 and 28 years old), Diabetes, Hyperlipidemia, Hypertension, Stroke (Brother at age 51), Alcoholism Review of Systems - Constitutional Reports body ache(s), Reports night sweats, Denies chills, Denies fever(s) - Eyes Denies change in vision - ENT Denies abnormal hearing - *Cardiovascular Denies chest pain - *Respiratory Denies chest congestion - *Gastrointestinal Reports loose stools - *Neurologic Reports weakness, Denies seizure-like activity - Hematologic/Lymphatic Denies easy bleeding Meds Home Medications Medication Instructions Recorded Confirmed Type Bumetanide 2 mg PO DAILY 08/29/21 08/30/21 History Lipase/Protease/Amylase [Angle Combs 4 cap PO AC 08/29/21 08/30/21 History 12,000 Unit Capsule] Morphine Sulfate [MS Contin 30mg 3 tab PO TID 08/29/21 08/30/21 History EXTENDED RELEASE tablet] Omeprazole [Omeprazole 40mg 1 cap PO BID 08/29/21 08/30/21 History Capsule] Oxycodone HCl/Acetaminophen 1 tab PO Q6HP PRN 08/29/21 08/30/21 History [Oxycodone-Acetaminophen 10-300] Potassium Chloride 40 meq PO DAILY 08/29/21 08/30/21 History Prochlorperazine Maleate 1 tab PO Q6H PRN 08/29/21 08/30/21 History Propranolol HCl 60 mg PO TID 08/29/21 08/30/21 History Tizanidine HCl [Tizanidine HCl 2 mg PO HS PRN 08/29/21 08/30/21 History 2mg] Venlafaxine HCl [Venlafaxine HCl 75 mg PO HS 08/29/21 08/30/21 History ER] Allergies Allergy/AdvReac Type Severity Reaction Status Date / Time bacitracin Allergy Rash Verified 08/30/21 05:19 [From Neosporin ([id number])] methadone Allergy Dizziness Verified 08/30/21 05:19 neomycin Allergy Rash Verified 08/30/21 05:19 [From Neosporin ([id number])] nonoxynol 9 Allergy Rash Verified 08/30/21 05:19 [From KY Plus Spermicidal Jelly] Penicillins Allergy Rash Verified 08/30/21 05:19 polymyxin B Allergy Rash Verified 08/30/21 05:19 [From Neosporin ([id number])] Exam Vital signs and Labs for Last 24 Hours: Temp Pulse Resp BP Pulse Ox 97.1 F L 57 L 16
[2021-08-30 11:11] LABS: Thyroid Stimulating Hormone 2.04 uIU/mL (0.465-4.68)
--- NOTE | 2021-08-30 13:51 | HMH.PHAVTE ---
[facility] Pharmacy VTE Monitoring - Patient Demographics Admission date: 08/30/21 Report Date: 08/30/21 Time: 13:51 Allergies/Adverse Reactions: Patient Allergies bacitracin [From Neosporin ([id number])] Allergy (Verified 08/30/21 05:19) Rash methadone Allergy (Verified 08/30/21 05:19) Dizziness neomycin [From Neosporin ([id number])] Allergy (Verified 08/30/21 05:19) Rash nonoxynol 9 [From KY Plus Spermicidal Jelly] Allergy (Verified 08/30/21 05:19) Rash Penicillins Allergy (Verified 08/30/21 05:19) Rash polymyxin B [From Neosporin ([id number])] Allergy (Verified 08/30/21 05:19) Rash Height: 1.57 m Weight: 67.245 kg Patient Problems: Current Active Problems Insulin coma (Acute) Sinus bradycardia by electrocardiogram (Acute) Hypothermia (Acute) SAH (subarachnoid hemorrhage) (Acute) Hypokalemia (Acute) Diabetes mellitus (Acute) Neuroendocrine tumor (Acute) - VTE Risk Labs: VTE Related Lab Results Hgb 11.7 g/dL (12.2-16.2) L 08/30/21 07:45 Hct 37.5 % (37.0-47.0) 08/30/21 07:45 Plt Count 308 K/mm3 (142-424) 08/30/21 07:45 BUN 12 mg/dl (7-17) 08/30/21 07:45 Creatinine 0.80 mg/dl (0.52-1.04) D 08/30/21 07:45 Estimated Creat Clear 94 mL/min (50-200) 08/30/21 07:45 Was VTE Risk Assessment Performed: Yes VTE Score: 1 VTE Risk Level: Very Low Risk Clinical Trial Participant: No - Prophylaxis VTE Prophylaxis Ordered?: Yes Types of VTE Prophylaxis: TEDS Knee High Location of Applied Device: Refused
--- NOTE | 2021-08-30 14:36 | HMH.PHAINT ---
MEDICATION RECONCILIATION COMPLETE USING EXTERNAL PHARMACY FILL HISTORY AND PATIENT INTERVIEW.
--- NOTE | 2021-08-30 17:21 | PC.NURSE ---
pt has been alert and appropriate through out the shift. her fsbs has been stable. Port to r chest is c/d/i. pt denies any symptoms of hypo/hyperglycemia. She has ambulated independently through out the day. gait is steady.
[2021-08-30 17:31] LABS: POC Glucose,Bedside 185 (70-110)
--- NOTE | 2021-08-30 18:28 | PC.NURSE ---
pt is sitting up in bed. She reports feeling good. She is alert and appropriate. tolerated all po medications and meals well.
[2021-08-31] VITALS: BP 94/52; PULSE 92; RESP 16; TEMP 36.2; O2SAT 97
[2021-08-31 01:28] LABS: POC Glucose,Bedside 251 (70-110)
[2021-08-31 04:00] VITALS: BP 90/57; PULSE 72; RESP 16; TEMP 36.8; O2SAT 96
[2021-08-31 04:18] VITALS: BMI 30.4
--- NOTE | 2021-08-31 05:45 | PC.NURSE ---
PT ALERT AND ORIENTED X 4. IV INFUSING PER ORDER. FSBS ACHS - MEDICATED PER SLIDING SCALE. PT C/O OF A HEADACHE - MEDICATED PER MAR W/ RELIEF. PT HAS RESTED WELL. CALL LIGHT IN REACH.
[2021-08-31 08:00] VITALS: BP 91/61; PULSE 79; RESP 17; TEMP 36.7; O2SAT 95
[2021-08-31 08:00] LABS: Basophils % 0.4 % (0.1-2.0); Eosinophils # 0.2 K/mm3 (0.0-0.4); Eosinophils % 3.1 % (0.1-12.0); Hematocrit 35.9 % (37.0-47.0); Hemoglobin 11.3 g/dL (12.2-16.2); Lymphocytes # 0.8 K/mm3 (0.7-4.5); Lymphocytes % 14.4 % (10-50); Mean Corpuscular HGB Conc 31.6 g/dL (31.8-35.4); Mean Corpuscular Hemoglobin 28.5 pg (27.0-31.2); Mean Corpuscular Volume 90.2 fl (81-99); Mean Platelet Volume 8.7 fl (7.4-10.4); Monocytes # 0.4 K/mm3 (0.1-1.0); Monocytes % 7.7 % (1.7-9.3); Neutrophils # 4.1 K/mm3 (1.8-7.8); Neutrophils % 74.4 % (37.0-80.0); Platelet Count 337 K/mm3 (142-424); Red Blood Count 3.98 M/mm3 (4.20-5.40); Red Cell Distribution Width 15.6 % (11.5-17.5); White Blood Count 5.5 K/mm3 (4.8-10.8)
[2021-08-31 08:02] LABS: Alanine Aminotransferase 29 U/L (12-78); Albumin Level 1.9 g/dl (3.5-5.0); Albumin/Globulin Ratio 0.8 (1.1-1.8); Alkaline Phosphatase 863 U/L (38-126); Anion Gap 1.1 mEq/L (5-15); Aspartate Amino Transferase 86 U/L (14-36); Bilirubin,Total 0.2 mg/dl (0.2-1.3); Blood Urea Nitrogen 8 mg/dl (7-17); Calcium 7.2 mg/dl (8.4-10.2); Carbon Dioxide 30 mmol/L (22.0-30.0); Chloride 107 mmol/L (98-107); Creatinine Clearance Estimated 105 mL/min (50-200); Estimated Glomerular Filt Rate 78 ml/min (>60); GFR (African American) 94 ML/MIN (>60); Globulin 2.5 g/dL (1.3-3.2); Glucose 91 mg/dl (74-100); Potassium 4.1 mmoL/L (3.5-5.1); Sodium 134 mmol/L (136-145); Total Protein,Serum 4.4 g/dl (6.3-8.2)
[2021-08-31 11:30] LABS: POC Glucose,Bedside 93 (70-110)
[2021-08-31 12:00] VITALS: BP 91/54; PULSE 78; RESP 16; TEMP 36.8; O2SAT 96
--- NOTE | 2021-08-31 14:12 | PC.NURSE ---
Rounded on pt, cleaned and straightened room. Pt asleep at this time, ice water provided.
[2021-08-31 16:00] VITALS: BP 94/62; PULSE 73; RESP 16; TEMP 36.7; O2SAT 96
--- NOTE | 2021-08-31 16:05 | HMH.ACPN2 ---
Internal Medicine - PN: Subj *Date: 08/31/21 *Time: 16:05 Interval history: She has been stable and relatively comfortable but would like to go home. She has not received her regular medications yet but this seems to have caused no immediate difficulties. We discussed her medications in detail. I have asked her to stay another night particular in regards to the blood pressure and the head injury. She is amenable to this. I will adjust medications accordingly. Exam Vital signs and Labs for Last 24 Hours: Temp Pulse Resp BP Pulse Ox 98.1 F 79 17 91/61 L 95 08/31/21 08:00 08/31/21 08:00 08/31/21 08:00 08/31/21 08:00 08/31/21 08:00 Laboratory Results - last 24 hr 08/30/21 17:08: POC Glucose 185 H 08/30/21 20:06: POC Glucose 251 H 08/31/21 06:05: POC Glucose 93 08/31/21 07:38: WBC 5.5, RBC 3.98 L, Hgb 11.3 L, Hct 35.9 L, MCV 90.2, MCH 28.5, MCHC 31.6 L, RDW 15.6, Plt Count 337, MPV 8.7, Neut % (Auto) 74.4, Lymph % (Auto) 14.4, [place] % (Auto) 7.7, Eos % (Auto) 3.1, Baso % (Auto) 0.4, Neut # (Auto) 4.1, Lymph # (Auto) 0.8, [place] # (Auto) 0.4, Eos # (Auto) 0.2, Baso # (Auto) 0.0 08/31/21 07:38: Sodium 134 L, Potassium 4.1 D, Chloride 107, Carbon Dioxide 30, Anion Gap 1.1 L, BUN 8 D, Creatinine 0.80, Estimated Creat Clear 105, Estimated GFR 78, Est GFR ( Amer) 94, Glucose 91 D, Calcium 7.2 L, Total Bilirubin 0.2, AST 86 H, ALT 29, Alkaline Phosphatase 863 H, Total Protein 4.4 L, Albumin 1.9 L D, Globulin 2.5, Albumin/Globulin Ratio 0.8 L I & O for Last 24 hours: Intake & Output 08/29/21 08/30/21 08/31/2122 11:59 11:59 11:59 11:59 Intake Total 3720 / 3720 2079 / 2079 360 / 360 Output Total 800 / 800 Balance 2920 / 2920 2079 / 2079 360 / 360 Weight 148 lb 4 oz 165 lb 6 oz - Constitutional no acute distress - *Routine HEENT Exam Head: Present: normocephalic. Absent: atraumatic (Perhaps some mild left facial swelling. She describes tenderness.) Eye: Present: EOMI, PERRL ENT: Present: mucous membranes moist - *Routine Neck Exam Present: supple. Absent: lymphadenopathy - *Routine Respiratory Exam Present: CTA bilaterally - *Routine Cardiovascular Exam Present: RRR - *Routine Abdominal Exam Present: soft, normoactive bowel sounds. Absent: tenderness - *Routine Extremities Exam Absent: cyanosis, clubbing, edema - *Routine Skin Exam Present: warm. Absent: rash - *Routine Neurological Exam Present: alert, oriented X3 Assessment and Plan (1) Neuroendocrine tumor Status: Acute Category: Medical Code(s): D3A.8 - Other benign neuroendocrine tumors (2) Diabetes mellitus Status: Acute Qualifiers: Diabetes mellitus type: type 2 Diabetes mellitus long term care phlebotomist insulin use: unspecified shelter insulin use status Diabetes mellitus complication status: with other specified complication Qualified Code(s): E11.69 - Type 2 diabetes mellitus with other specified complication Category: Medical Code(s): E11.9 - Type 2 diabetes mellitus without complications (3) Hypokalemia Status: Acute Category: Medical Code(s): E87.6 - Hypokalemia (4) Hypothermia Status: Acute Qualifiers: Encounter type: initial encounter Qualified Code(s): T68.XXXA - Hypothermia, initial encounter Category: Medical Code(s): T68.XXXA - Hypothermia, initial encounter (5) Insulin coma Status: Acute Category: Medical Code(s): E11.641 - Type 2 diabetes mellitus with hypoglycemia with coma (6) SAH (subarachnoid hemorrhage) Status: Acute Category: Medical Code(s): I60.9 - Nontraumatic subarachnoid hemorrhage, unspecified (7) Sinus bradycardia by electrocardiogram Status: Acute Category: Medical Code(s): R00.1 - Bradycardia, unspecified - Assessment and plan all Dx Assessment and Plan for all problems:: Meds adjusted. Plan discharge in a.m. if stable.
[2021-08-31 20:00] VITALS: BP 106/65; PULSE 93; RESP 16; TEMP 37.4; O2SAT 99
[2021-09-01] VITALS: BP 93/53; PULSE 89; RESP 16; TEMP 36.7; O2SAT 96
[2021-09-01 01:13] LABS: POC Glucose,Bedside 93 (70-110)
[2021-09-01 01:13] LABS: POC Glucose,Bedside 146 (70-110)
[2021-09-01 01:13] LABS: POC Glucose,Bedside 200 (70-110)
[2021-09-01 04:00] VITALS: BP 105/57; PULSE 72; RESP 16; TEMP 36.4; O2SAT 97
--- NOTE | 2021-09-01 04:10 | PC.NURSE ---
Pt is alert and oriented x4. Pt complained of pain this shift one time, treated per mar. FSBS ACHS, medicated per mar based on sliding scale. Pt is independent in the room and has no other complaints.
[2021-09-01 04:22] VITALS: BMI 30.8
[2021-09-01 06:13] LABS: POC Glucose,Bedside 118 (70-110)
[2021-09-01 06:35] LABS: Basophils % 0.5 % (0.1-2.0); Eosinophils # 0.4 K/mm3 (0.0-0.4); Hematocrit 34.4 % (37.0-47.0); Hemoglobin 10.9 g/dL (12.2-16.2); Lymphocytes # 1.1 K/mm3 (0.7-4.5); Lymphocytes % 18.2 % (10-50); Mean Corpuscular HGB Conc 31.8 g/dL (31.8-35.4); Mean Corpuscular Hemoglobin 27.9 pg (27.0-31.2); Mean Corpuscular Volume 87.7 fl (81-99); Mean Platelet Volume 7.7 fl (7.4-10.4); Monocytes # 0.4 K/mm3 (0.1-1.0); Monocytes % 7.1 % (1.7-9.3); Neutrophils # 4.1 K/mm3 (1.8-7.8); Neutrophils % 68.1 % (37.0-80.0); Platelet Count 318 K/mm3 (142-424); Red Blood Count 3.93 M/mm3 (4.20-5.40); Red Cell Distribution Width 15.1 % (11.5-17.5); White Blood Count 6.1 K/mm3 (4.8-10.8)
[2021-09-01 06:46] LABS: Anion Gap 4.5 mEq/L (5-15); Blood Urea Nitrogen 8 mg/dl (7-17); Calcium 7.4 mg/dl (8.4-10.2); Carbon Dioxide 29 mmol/L (22.0-30.0); Chloride 106 mmol/L (98-107); Creatinine Clearance Estimated 85 mL/min (50-200); Estimated Glomerular Filt Rate 60 ml/min (>60); GFR (African American) 73 ML/MIN (>60); Glucose 123 mg/dl (74-100); Potassium 4.5 mmoL/L (3.5-5.1); Sodium 135 mmol/L (136-145)
[2021-09-01 08:00] VITALS: BP 103/54; PULSE 71; RESP 16; TEMP 36.6; O2SAT 98
--- NOTE | 2021-09-01 09:16 | HMH.ACPN2 ---
Internal Medicine - PN: Subj *Date: 09/01/21 *Time: 09:16 Interval history: Medications were adjusted yesterday and she was stable through the day in the evening. She is clinically stable this morning and ready for discharge. See medication list. She will be following up with her oncologist and her primary care physician. I encouraged her to speak to her primary care physician's office today to arrange for follow-up. Exam Vital signs and Labs for Last 24 Hours: Temp Pulse Resp BP Pulse Ox 97.5 F L 72 16 105/57 L 97 09/01/21 04:00 09/01/21 04:00 09/01/21 04:00 09/01/21 04:00 09/01/21 04:00 Laboratory Results - last 24 hr 08/31/21 06:05: POC Glucose 93 08/31/21 11:10: POC Glucose 93 08/31/21 16:35: POC Glucose 146 H 08/31/21 20:33: POC Glucose 200 H 09/01/21 06:05: POC Glucose 118 H 09/01/21 06:20: WBC 6.1, RBC 3.93 L, Hgb 10.9 L, Hct 34.4 L, MCV 87.7, MCH 27.9, MCHC 31.8, RDW 15.1, Plt Count 318, MPV 7.7, Neut % (Auto) 68.1, Lymph % (Auto) 18.2, [place] % (Auto) 7.1, Eos % (Auto) 6.0, Baso % (Auto) 0.5, Neut # (Auto) 4.1, Lymph # (Auto) 1.1, [place] # (Auto) 0.4, Eos # (Auto) 0.4, Baso # (Auto) 0.0 09/01/21 06:20: Sodium 135 L, Potassium 4.5, Chloride 106, Carbon Dioxide 29, Anion Gap 4.5 L, BUN 8, Creatinine 1.00 D, Estimated Creat Clear 85, Estimated GFR 60, Est GFR ( Amer) 73 D, Glucose 123 H D, Calcium 7.4 L I & O for Last 24 hours: Intake & Output 08/29/21 08/30/21 08/31/21 09/01/21 11:59 11:59 11:59 11:59 Intake Total 3720 / 3720 2080 / 2080 5557 / 5557 Output Total 800 / 800 200 / 200 Balance 2920 / 2920 2079 5357 / 5357 Weight 148 lb 4 oz 165 lb 6 oz 167 lb 6 oz Microbiology Reports for the Last 24 Hours: Microbiology 08/29/21 19:41 Blood Blood Culture - Preliminary NO GROWTH AFTER 48 HOURS 08/29/21 19:41 Blood Blood Culture - Preliminary NO GROWTH AFTER 48 HOURS - Constitutional no acute distress - *Routine HEENT Exam Head: Present: normocephalic Eye: Present: EOMI, PERRL ENT: Present: mucous membranes moist - *Routine Neck Exam Present: supple. Absent: lymphadenopathy - *Routine Respiratory Exam Present: CTA bilaterally - *Routine Cardiovascular Exam Present: RRR - *Routine Abdominal Exam Present: soft, normoactive bowel sounds. Absent: tenderness - *Routine Extremities Exam Absent: cyanosis, clubbing, edema - *Routine Skin Exam Present: warm. Absent: rash - *Routine Neurological Exam Present: alert, oriented X3 Assessment and Plan (1) Neuroendocrine tumor Status: Acute Category: Medical Code(s): D3A.8 - Other benign neuroendocrine tumors (2) Diabetes mellitus Status: Acute Qualifiers: Diabetes mellitus type: type 2 Diabetes mellitus retirement insulin use: unspecified retirement insulin use status Diabetes mellitus complication status: with other specified complication Qualified Code(s): E11.69 - Type 2 diabetes mellitus with other specified complication Category: Medical Code(s): E11.9 - Type 2 diabetes mellitus without complications (3) Hypokalemia Status: Acute Category: Medical Code(s): E87.6 - Hypokalemia (4) Hypothermia Status: Acute Qualifiers: Encounter type: initial encounter Qualified Code(s): T68.XXXA - Hypothermia, initial encounter Category: Medical Code(s): T68.XXXA - Hypothermia, initial encounter (5) Insulin coma Status: Acute Category: Medical Code(s): E11.641 - Type 2 diabetes mellitus with hypoglycemia with coma (6) SAH (subarachnoid hemorrhage) Status: Acute Category: Medical Code(s): I60.9 - Nontraumatic subarachnoid hemorrhage, unspecified (7) Sinus bradycardia by electrocardiogram Status: Acute Category: Medical Code(s): R00.1 - Bradycardia, unspecified - Assessment and plan all Dx Assessment and Plan for all problems:: Discharge. See medication list. She is to cont
--- NOTE | 2021-09-01 10:41 | PC.NURSE ---
discharge education given, home meds returned to patient.
--- NOTE | 2021-09-02 22:34 | HMH.DCSUM ---
General - General Admission date:: 08/30/21 Discharge date: 09/01/21 HPI HPI: This 45-year-old white female was brought to the emergency room because of change in responsiveness. She was found to be hypoglycemic. She has a history of a neuroendocrine tumor with onset of diabetes subsequent to that. She has been diabetic over the past 2 years. She has been followed at the [facility] but she is also been hospitalized here at [facility]. Her oncologist is Dr. Nunez. She states that she takes daily chemotherapy. She is seen at every 3 months. The diagnosis was made in 2013. Another factor in her admission was a bradycardia of a rate below 40. She normally takes propranolol. This, of course, has not been continued on hospitalization. A CT of the head was obtained in the emergency room and there was evidence of a small subarachnoid hemorrhage. With a repeat CT hours later it seemed to be stable and not progressive. She has a strong family history for cancers. Hospital Course Hospital Course: The patient was admitted and her propranolol was discontinued due to bradycardia. Her blood sugars were monitored as was her neurologic status with regard to the subarachnoid hemorrhage. She had a repeat head CT which showed the small amount of left temporoparietal subarachnoid hemorrhage appeared slightly more faint than on previous exam. By 08/31/2021, she was stable and relatively comfortable and wanted to go home. Dr. Staton asked her to stay another night particularly in regards to the hypotension and the head injury. She was amendable to this. Some of her medications were adjusted and she was stable throughout the night. It was felt she was ready for discharge and would need follow-up with her oncologist and primary care physician. Objective Vital signs: Temp Pulse Resp BP Pulse Ox 97.9 F 71 16 103/54 L 98 09/01/21 08:00 09/01/21 08:00 09/01/21 08:00 09/01/21 08:00 09/01/21 08:00 Narrative: - *Routine HEENT Exam Head: Present: normocephalic Eye: Present: EOMI, PERRL ENT: Present: mucous membranes moist - *Routine Neck Exam Present: supple. Absent: lymphadenopathy - *Routine Respiratory Exam Present: CTA bilaterally - *Routine Cardiovascular Exam Present: RRR, S4 (Versus 1/6 murmur) - *Routine Abdominal Exam Present: soft, normoactive bowel sounds. Absent: tenderness, mass - *Routine Rectal Exam Rectal:: deferred - *Routine Genitalia Exam Genitalia:: deferred - *Routine Extremities Exam Present: edema (Trace to 1+) - *Routine Skin Exam Present: warm. Absent: scars (Multiple tattoos), rash Results Labs on day of discharge: Preliminary micro results at discharge 08/29/21 19:41 Blood Culture - Preliminary Blood NO GROWTH AFTER 48 HOURS 08/29/21 19:41 Blood Culture - Preliminary Blood NO GROWTH AFTER 48 HOURS DS: Diagnosis - Discharge Diagnosis (1) Sinus bradycardia by electrocardiogram Status: Acute (2) Insulin coma Status: Acute (3) Hypokalemia Status: Acute (4) Hypothermia Status: Acute (5) Diabetes mellitus Status: Acute (6) Pancreatic cancer Status: Acute (7) Hypoglycemia Status: Acute Discharge Plan - Patient Discharge Instructions ACTIVITY: Continue current activity DIET: continue same diet Patient Instructions: Subarachnoid Hemorrhage, Hypothermia, DI for Hypothermia, DI for Hypokalemia, DI for Hypoglycemia, DI for Hypotension - Follow up Plan Follow up with: Sharlene Staton MD [Staff Physician] - 09/08/21 9:45 am (appointment with Yamini) Disposition: Home, Self-Care Condition at discharge:: Improved Home Medications: Home Medications Medication Instructions Recorded Confirmed Type Buspirone HCl [Buspar 10mg 10 mg PO TID 06/24/21 06/25/21 History tablet] Dicyclomine HCl 20 mg PO QIDP PRN 06/24/21 06/25/21 History Metformin HCl [Glucophage 500
--- NOTE | 2021-09-04 15:49 | CARE MANAGER ---
Attempted to contact patient x3 related to hospital discharge. JOO Cantrell
== END 2021-09-01 10:41 | disposition home or self-care (01) | DRG 64 ==
LOC: ER 21:02 → 2ND 08-30 02:14
PROVIDERS: Emergency Medicine; Admitting Provider Family Medicine; Emergency Provider Emergency Medicine; Visit Provider Family Medicine
DX: I60.9 Nontraumatic subarachnoid hemorrhage, unspecified (principal); E11.641 Type 2 diabetes mellitus with hypoglycemia with coma; C7A.8 Other malignant neuroendocrine tumors; F17.210 Nicotine dependence, cigarettes, uncomplicated; E87.6 Hypokalemia; R68.0 Hypothermia, not associated with low environmental temperature; R00.1 Bradycardia, unspecified
CPT/HCPCS: 36415; 70450; 71045; 72125; 72170; 80048; 80053; 81001; 82150; 82550; 82962; 83036; 83605; 83690; 83735; 83880; 84443; 84484; 85025; 87040; 93005; 99285; C9803; G0378; J1642; U0003; U0005

== ENCOUNTER 2022-04-10 21:30 | Emergency (ER) | payer MEDICARE, MEDICAID, SELFPAY ==
[2022-04-10] VITALS (19 sets, daily range): BP systolic 66–165; BP diastolic 32–115; PULSE 41–96; RESP 8–17; TEMP 32.7; O2SAT 95–100; BMI 23.0
--- NOTE | 2022-04-10 21:35 | CT_ITS ---
PROCEDURE INFORMATION: Exam: CT Abdomen And Pelvis With Contrast Exam date and time: 04/10/2022 10:11 PM Age: 46 years old Clinical indication: Abdominal pain; Additional info: Pancreatic cancer, worsening abdominal pain, AMS TECHNIQUE: Imaging protocol: Computed tomography of the abdomen and pelvis with contrast. Radiation optimization: All CT scans at this facility use at least one of these dose optimization techniques: automated exposure control; mA and/or kV adjustment per patient size (includes targeted exams where dose is matched to clinical indication); or iterative reconstruction. Contrast material: ISOVUE; Contrast volume: 75 ml; Contrast route: IV; REPORTING DATA: Count of CT and Cardiac NM exams in prior 12 months: This patient has received 0 known CTs and 0 known cardiac nuclear medicine studies in the 12 months prior to the current study. COMPARISON: CR XR PELVIS 1-2V 06/25/2021 1:14 AM FINDINGS: Tubes, catheters and devices: Central line tip in the right atrium. Lungs: Mild scarring and atelectasis in the lower lungs. Liver: Left hepatic stent and common duct stent appear to be in the expected location. There are innumerable hepatic masses, some of which are centrally necrotic. For follow-up purposes, examples include: 7.6 cm right hepatic mass image 11 series 3 posteriorly, 5.3 cm mass image 5 series 3, and 1.8 cm left hepatic mass image 18 series 3. Hepatic steatosis. Gallbladder and bile ducts: Pneumobilia likely related to common duct stenting. Gallbladder is absent. Pancreas: Severe atrophy of the pancreatic body and tail. The pancreatic head has an irregular low-attenuation mass with scattered calcifications. Spleen: Normal. No splenomegaly. Adrenal glands: Normal. No mass. Kidneys and ureters: Low attenuation renal lesions measuring up to 1.5 cm in diameter are incompletely characterized, but are likely cysts. No followup imaging is warranted. Stomach and bowel: Bowel wall thickening of the stomach, small bowel, and colon. Appendix: No evidence of appendicitis. Intraperitoneal space: Small amount of perihepatic ascites, which is likely malignant. Vasculature: The splenic and portal veins appear to be thrombosed. The arteries demonstrate mild atherosclerotic disease. Lymph nodes: Unremarkable. No enlarged lymph nodes. Urinary bladder: Unremarkable as visualized. Reproductive: Tubal ligation clips are noted. Bones/joints: Postsurgical changes of the right femur. The hardware appears intact. Old left rib fractures. Soft tissues: Small fat containing umbilical hernia. IMPRESSION: 1. The pancreatic head has an irregular low-attenuation mass with scattered calcifications. This correlates with reported history of pancreatic cancer. 2. Widespread hepatic metastatic disease. 3. Hepatic steatosis. 4. 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 This could be chronic. 5. Bowel wall thickening of the stomach, small bowel, and colon. This could be related to venous congestion/portal venous thrombosis, portal hypertension, or GI tract inflammation/infection depending on the clinical setting. COMMENTS: Consistent with the [place] [employer]'s Incidental Findings Committee white paper (J Am Rian Radiol 2018): Any incidental renal lesion less than 1 cm or classified as too small to characterize, or any incidental cystic renal lesion characterized as simple-appearing, is likely benign. No follow-up imaging is recommended for these lesions per consensus recommendations based on imaging criteria.
--- NOTE | 2022-04-10 21:40 | PC.NURSE ---
Patient was hypothermic, rectal temp of 91.0. MD notified. Elsy turner applied per protocol
[2022-04-10 21:46] LABS: POC Glucose,Bedside 119 (70-110)
[2022-04-10 22:02] LABS: Coronavirus 19, PCR Not Detected (NotDetected); Influenza A, PCR Not Detected (NotDetected); Influenza B, PCR Not Detected (NotDetected)
[2022-04-10 22:07] LABS: Basophils % 0.5 % (0.1-2.0); Eosinophils # 0.2 K/mm3 (0.0-0.4); Eosinophils % 2.3 % (0.1-12.0); Hematocrit 37.2 % (37.0-47.0); Hemoglobin 12.3 g/dL (12.2-16.2); Lymphocytes # 0.8 K/mm3 (0.7-4.5); Lymphocytes % 9.7 % (10-50); Mean Corpuscular HGB Conc 33.1 g/dL (31.8-35.4); Mean Corpuscular Hemoglobin 35.9 pg (27.0-31.2); Mean Corpuscular Volume 108.6 fl (81-99); Mean Platelet Volume 8.4 fl (7.4-10.4); Monocytes # 0.6 K/mm3 (0.1-1.0); Neutrophils # 6.2 K/mm3 (1.8-7.8); Neutrophils % 79.4 % (37.0-80.0); Platelet Count 487 K/mm3 (142-424); Red Blood Count 3.42 M/mm3 (4.20-5.40); Red Cell Distribution Width 13.8 % (11.5-17.5); White Blood Count 7.8 K/mm3 (4.8-10.8)
--- NOTE | 2022-04-10 22:13 | PC.NURSE ---
Pt gone to RAD via stretcher
[2022-04-10 22:14] LABS: Alanine Aminotransferase 27 U/L (12-78); Albumin Level 2.5 g/dl (3.5-5.0); Albumin/Globulin Ratio 0.8 (1.1-1.8); Alkaline Phosphatase 1151 U/L (38-126); Aspartate Amino Transferase 71 U/L (14-36); Bilirubin,Total 0.9 mg/dl (0.2-1.3); Blood Urea Nitrogen 19 mg/dl (7-17); Calcium 7.1 mg/dl (8.4-10.2); Chloride 84 mmol/L (98-107); Creatinine Clearance Estimated 63 mL/min (50-200); Estimated Glomerular Filt Rate 60 ml/min (>60); GFR (African American) 72 ML/MIN (>60); Globulin 3.2 g/dL (1.3-3.2); Glucose 131 mg/dl (74-100); Lipase 11 U/L (23-300); Sodium 126 mmol/L (136-145); Total Protein,Serum 5.7 g/dl (6.3-8.2)
--- NOTE | 2022-04-10 22:21 | PC.NURSE ---
Pt back from RAD via stretcher
--- NOTE | 2022-04-10 22:26 | PC.NURSE ---
Dr. Thomas at [facility]
[2022-04-10 22:29] LABS: Microscopic, Urine URINE MICROSCOPIC (MICROSCOPIC)
[2022-04-10 22:31] LABS: Procalcitonin 0.281 ng/mL (0.0-2.0)
[2022-04-10 22:35] LABS: Appearance,Urine CLEAR (Clear); Bilirubin,Urine Negative (Negative); Blood, Urine Negative (Negative); Color,Urine YELLOW (Yellow); Glucose,Urine (UA) TRACE (Negative); Ketones,Urine Negative (Negative); Leukocyte Esterase,Urine Negative (Negative); Nitrate,Urine Negative (Negative); Protein,Urine Negative (Negative); Urobilinogen,Urine 0.2 EU/dl (0.2)
[2022-04-10 22:40] LABS: Carbon Dioxide 44 mmol/L (22.0-30.0)
--- NOTE | 2022-04-10 22:41 | PC.NURSE ---
Dr. Choi notified of critical potassium of 2.0
--- NOTE | 2022-04-10 22:50 | PC.NURSE ---
Patients recheck rectal temperature is 90.8. MD notified. Warm fluids 1000ml 0.9%naCl given per md order
[2022-04-10 22:52] LABS: POC Glucose,Bedside 78 (70-110)
--- NOTE | 2022-04-10 22:59 | PC.NURSE ---
Dr. Thomas speaking with Dr. Stiven azevedo MD
--- NOTE | 2022-04-10 23:01 | HMH.EDGENADL ---
Discharge Plan Disposition Chief Complaint: Hyper/Hypoglycemia Prescriptions Prescriptions: No Action prochlorperazine maleate 10 MG tablet 1 tab PO Q6HP PRN (Reason: Nausea) morphine 30 MG tablet extended release 3 tab PO TID omeprazole 40 MG capsule,delayed release(DR/EC) 1 cap PO BID bumetanide 2 MG tablet 4 mg PO TID oxycodone-acetaminophen 1 EACH tablet 1 tab PO Q6HP PRN (Reason: Severe Pain) venlafaxine 75 MG tablet extended release 24hr 75 mg PO DAILYDM [id number] 1 EACH capsule,delayed release(DR/EC) 4 cap PO AC Label Comments: TAKE 4 CAPSULES BY MOUTH WITH MEALS DAILY AND 2 CAPSULES WITH SNACKS citalopram 10 MG tablet 10 mg PO DAILY buspirone 10 MG tablet 10 mg PO TID octreotide acetate 200 MCG/ML solution 50 mcg SQ DAILY insulin glargine 100 UNIT/ML insulin pen 10 units SQ HS Label Comments: INJECT 10 UNITS UNDER THE SKIN EVERY MORNING everolimus (antineoplastic) 10 MG tablet 10 mg PO PM potassium chloride 20 MEQ packet 40 meq PO DAILY spironolactone 50 MG tablet 50 mg PO DAILY fluticasone propionate 16 GM spray,suspension 1 spray NS DAILY metformin 500 MG tablet 500 mg PO BIDWMEAL propranolol 60 MG tablet 60 mg PO TID dicyclomine 20 MG tablet 20 mg PO QIDP PRN (Reason: Cramping) buspirone 10 MG tablet 10 mg PO TID tizanidine 2 MG tablet 2 mg PO HSP PRN (Reason: Muscle Spasm) prochlorperazine maleate 10 MG tablet 10 mg PO QIDP PRN (Reason: Nausea) spironolactone 25 MG tablet 50 mg PO DAILY ondansetron 8 MG tablet,disintegrating 8 mg PO Q8HP PRN (Reason: Nausea) potassium chloride 20 MEQ packet 40 meq PO DAILY octreotide acetate 1,000 MCG/ML solution 1 dose IJ DIRECTED fluticasone propionate 9.9 ML spray,suspension 1 spray NS DAILY insulin lispro 100 UNIT/ML insulin pen See Protocol SQ AC Protocol: Insulin Corrective Med-Dose Regimen Condition: Fingerstick Blood Glucose Dose/Route: Insulin Units Condition: 151-200 mg/dl Dose/Route: 4 units/SQ Condition: 201-250 mg/dl Dose/Route: 6 units/SQ Condition: 251-300 mg/dl Dose/Route: 8 units/SQ Condition: 301-350 mg/dl Dose/Route: 10 units/SQ Condition: 351-400 mg/dl Dose/Route: 12 units/SQ Condition: 401-450 mg/dl Dose/Route: 14 units/SQ Condition: > 450 mg/dl Dose/Route: CALL insulin glargine 100 UNIT/ML insulin pen 20 units SQ HS Label Comments: INJECT 20 UNITS UNDER THE SKIN EVERY NIGHT oxycodone 10 MG tablet 10 mg PO Q6HP PRN (Reason: Severe Pain) everolimus (antineoplastic) 10 MG tablet 10 mg PO DAILY drsgqu-pbsuzgwr-tjfmcys 1 EACH capsule,delayed release(DR/EC) 4 cap PO TIDWMEAL Rx Instructions: AND TAKE 2 WITH SNACKS fluoxetine 40 MG capsule 80 mg PO DAILY morphine 30 MG tablet extended release 30 mg PO TID Label Comments: TAKE 1 TABLET (30 MG TOTAL) BY MOUTH 3 (THREE) TIMES A DAY. DO NOT CRUSH, CHEW, OR SPLIT. morphine 60 MG tablet extended release 60 mg PO TID Referrals Follow up/Referrals: Provider,Referral, [Primary Care Provider] - See instructions Instructions Patient Instructions: DI for Hyperglycemia -- Adult Discharge ED Provider: Jimbo Thomas Adult HPI General Chief complaint: Hyper/Hypoglycemia Stated complaint: Hypoglycemia Time Seen by Provider: 04/10/22 21:59 Mode of Arrival: Ambulatory Source of Information: Patient and EMS Limitations: No Limitations Description of Symptoms (Recalled from ER Triage Doc. by RN): Pt arrives via ems. Per ems, pt was sitting on the toilet when her boyfriend found her and she was unresponsive. When ems arrived her blood glucose was 23, they gave her 500cc of d10. Pt stated that she just feels cold and has also had worse central chest pain that normal. Pt reports stage
--- NOTE | 2022-04-10 23:06 | PC.NURSE ---
Pt accepted at by Dr. Saleem
[2022-04-10 23:08] LABS: Lactic Acid 1.2 mmol/L (0.7-2.1)
--- NOTE | 2022-04-10 23:16 | PC.NURSE ---
transfer center called back with room assignment: [facility], [place] Richardson, 10th floor [address], report [phone] Al[facility] will be taking report.
--- NOTE | 2022-04-10 23:31 | PC.NURSE ---
[facility] called back to let us know [place] flight can accept at this time, however will need to re-fuel.
--- NOTE | 2022-04-10 23:42 | PC.NURSE ---
At 2322 it was noted that pt's HR was decreasing to 30s, pt is still able to arouse to verbal stimulation & is oriented but lethargic. She does wish to be a full code. @ 2324 HR 28bpm & RR 8, sat 96%. ordered 1 amp of Atropine IVP. @ 2326 HR increasing to 50s, pt's boyfriend is at pt's bedside and updated him in person & daughter via phone. @ 2328 HR 90s and letting pt's daughter s/w pt with the phone held up to her ear.
--- NOTE | 2022-04-10 23:49 | PC.NURSE ---
[facility] ETA 10 min
--- NOTE | 2022-04-10 23:54 | PC.NURSE ---
Pt requests kishan harman daughter be her next of kin and make her medical decision. Marlon phone number is . [place]an [place] and requests that other sister who lives locally be emergency contact. Alysha Tinoco is emergency contact, phone number [phone].
[2022-04-11] VITALS: BP 75/53; PULSE 81; RESP 15; O2SAT 97
--- NOTE | 2022-04-11 00:05 | PC.NURSE ---
[facility] [place] [facility] here for transport. MD & RN's at bedside giveing report. Preparing Vasopressin at this time
[2022-04-11 00:08] VITALS: BP 92/65; RESP 11; TEMP 33.3
[2022-04-11 00:10] VITALS: BP 88/67; RESP 12; TEMP 33.5
[2022-04-11 00:54] VITALS: BP 72/38; PULSE 78; RESP 16; TEMP 34.4; O2SAT 98
--- NOTE | 2022-04-11 01:52 | PC.NURSE ---
John with Pharmacy called to confirm pt's ABX doses & timing
== END 2022-04-11 01:07 | disposition other institution (70) ==
PROVIDERS: Emergency Provider Emergency Medicine
DX: E16.2 Hypoglycemia, unspecified (principal); C25.9 Malignant neoplasm of pancreas, unspecified; F17.210 Nicotine dependence, cigarettes, uncomplicated; Z20.822 Contact with and (suspected) exposure to COVID-19
CPT/HCPCS: 70540; 74177; 80053; 81001; 82962; 83605; 83690; 84145; 85025; 87040; 96361; 96365; 96367; 96375; 99291; C9803; G0390; J0692; J3370; Q9967; S0030; U0003; U0005